=== PATIENT | male | born 1960 | race Caucasian/White ===

== ENCOUNTER 2018-02-09 14:39 | Emergency (ER) | payer OTHER ==
[~2018-02-09] VITALS: Ht 175.3 cm; Wt 82.8 kg
[2018-02-09 14:47] VITALS: BP 142/85
--- NOTE | 2018-02-09 14:56 | NUR ---
PT AMBULATED TO BED 6
--- NOTE | 2018-02-09 15:20 | NUR ---
57 YO M TO ER FOR LAC TO RIGHT FOREHEAD S/P FALL LAST NIGHT. LAC APPROX 1.5 IN. PT STATE THAT HE WAS DRINKING AND LOST HIS FOOTING FELL AND HIT HIS HEAD ON CONCREAT, STATES NO LOC . BLEEDING CONTROLLED. PERRLA. DENIES N/V/D; SKIN IS WARM WITH NOTED SILVERY PLAQUE ON BILAT ARMS; AAOX4 WITH EVEN AND STEADY GAIT; LUNGS CLEAR BL; HR EVEN AND REGULAR; PT DENIES ANY FEVER, CP, SOB, OR COUGH AT THIS TIME; PATIENT STATES PAIN OF 5/10 AT THIS TIME; VSS; PATIENT POSITIONED FOR COMFORT; HOB ELEVATED; BEDRAILS UP X2; BED DOWN. ER MD MADE AWARE OF PT STATUS. HX HTN, DEPRESSION, psoriasis, AND RA NKA
[2018-02-09] MEDS ORDERED: LIDOCAINE 1% 500 MG/50 ML VIAL INJ ONE (17:25)
--- NOTE | 2018-02-09 17:36 | NUR ---
PT RETURNED FROM X RAY
[2018-02-09] MEDS ORDERED: cefTRIAXone 1,000 MG VIAL ONE (17:42)
[2018-02-09 17:59] LABS: BASOPHILS % (AUTO) 0.5 % (0.0-2.0); EOSINOPHILS % (AUTO) 0.3 % (0.0-4.0); HEMATOCRIT 41.2 % (36-52); HEMOGLOBIN 14.2 g/dL (12.0-18.0); LYMPHOCYTES # (AUTO) 0.5 K/uL (2.0-11.5); LYMPHOCYTES % (AUTO) 12.6 % (20.5-51.1); MEAN CORPUSCULAR HEMOGLOBIN 35 pg (27-31); MEAN CORPUSCULAR HGB CONC 35 g/dL (33-37); MONOCYTES # (AUTO) 0.3 K/uL (0.8-1.0); MONOCYTES % (AUTO) 8.1 % (1.7-9.3); NEUTROPHILS # (AUTO) 3.4 K/uL (1.8-7.7); NEUTROPHILS % (AUTO) 78.5 % (42.2-75.2); PLATELET COUNT (AUTO) 125 K/uL (140-450); RED BLOOD CELL COUNT(AUTO) 4.04 MIL/uL (4.20-6.10); RED CELL DISTRIBUTION WIDTH 15.8 % (11.6-13.7); WHITE BLOOD COUNT (AUTO) 4.3 K/uL (4.8-10.8)
--- NOTE | 2018-02-09 18:05 | NUR ---
PT TO CT VIA KERMIT IN STABLE CONDITION WITH ALUMINUM SIDING INSTALLER
--- NOTE | 2018-02-09 18:06 | NUR ---
RECIEVED REPORT FROM PRASHANT RN
[2018-02-09 18:16] LABS: ALBUMIN 2.9 g/dL (3.4-5.0); ANION GAP 15.6 (8-16); CARBON DIOXIDE 22.8 mmol/L (21-32); CREATININE 0.8 mg/dL (0.7-1.3); POTASSIUM 3.4 mmol/L (3.5-5.1); TOTAL BILIRUBIN 0.8 mg/dL (0.0-1.0)
[2018-02-09 18:32] LABS: APPEARANCE,URINE CLEAR (CLEAR); BILIRUBIN,URINE NEGATIVE (NEGATIVE); BLOOD, URINE NEGATIVE (NEGATIVE); LEUKOCYTE ESTERASE ,URINE NEGATIVE (NEGATIVE); NITRITE, URINE NEGATIVE (NEGATIVE); PH,URINE 6.5 (5.0-9.0); UGLUCOSE NEGATIVE (NEGATIVE)
[2018-02-09 18:34] LABS: COLOR,URINE STRAW (YELLOW)
[2018-02-09 18:48] LABS: BARBITURATE, URINE NEG. ng/ml (NEG <=200); BENZODIAZEPINE, URINE NEG. ng/mL (NEG <=200); CANNABINOID, URINE NEG. ng/mL (NEG <=50); COCAINE, URINE NEG. ng/mL (NEG <=300); OPIATE, URINE NEG. ng/mL (NEG <=2000); PHENCYCLIDINE SCREEN,URINE NEG. ng/mL (NEG <=25)
[2018-02-09] MEDS ORDERED: MULTIVITAMIN-12 10 ML, THIAMINE 100 MG, MAGNESIUM SULFATE 50% 2,000 MG, FOLIC ACID 5 MG... IV ONE ×5 (18:55)
[2018-02-09] MEDS ORDERED: BACITRACIN OINT 500 UNITS/GM PKT TP ONE (20:12)
[2018-02-09 20:19] VITALS: BP 142/85
--- NOTE | 2018-02-09 20:19 | NUR ---
Patient discharged with v/s stable. Wound cleansed and bacitracin applied. Wound covered. Pt tolerated seuters well. Written and verbal after care instructions given and explained. Patient alert, oriented and verbalized understanding of instructions. Ambulatory with steady gait. All questions addressed prior to discharge. ID band removed. Patient advised to follow up with PMD. Rx of MOTRIN AND KEFLEX given. Patient educated on indication of medication including possible reaction and side effects. Opportunity to ask questions provided and answered.
== END 2018-02-09 20:19 | disposition home or self-care (01) ==
LOC: MED 14:39
DX: S01.81XA Laceration without foreign body of other part of head, initial encounter (principal); I10 Essential (primary) hypertension; R94.31 Abnormal electrocardiogram [ECG] [EKG]; W18.40XA Slipping, tripping and stumbling without falling, unspecified, initial encounter; Y93.89 Activity, other specified; Y92.89 Other specified places as the place of occurrence of the external cause; Y99.8 Other external cause status
CPT/HCPCS: 36415; 70450; 71045; 72125; 80053; 80305; 81003; 82550; 84484; 85025; 90471; 93005; 96365; 96367; 99285; A9153; G0482; J0696; J2001; J3411; J3475; J3490; J7030; J7060; Q0092

== ENCOUNTER 2018-02-20 11:42 | Emergency (ER) | payer OTHER ==
[~2018-02-20] VITALS: Ht 175.3 cm; Wt 81.2 kg
[2018-02-20 12:02] VITALS: BP 137/78
--- NOTE | 2018-02-20 12:05 | NUR ---
PATIENT PRESENTS ED FOR SUTURE REMOVAL TO RIGHT FOREHEAD. DENIES PAIN. VSS; PATIENT POSITIONED FOR COMFORT; HOB ELEVATED; BEDRAILS UP X2; BED DOWN. ER MD MADE AWARE OF PT STATUS.
--- NOTE | 2018-02-20 12:39 | NUR ---
REMOVED SUTURES, PATIENT TOLERATED WELL.
[2018-02-20 12:44] VITALS: BP 145/78
--- NOTE | 2018-02-20 12:45 | NUR ---
Patient discharged with v/s stable. Written and verbal after care instructions given and explained. Patient verbalized understanding. Ambulatory with steady gait. All questions addressed prior to discharge. Advised to follow up with PMD.
== END 2018-02-20 12:45 | disposition home or self-care (01) ==
LOC: MED 11:42
DX: S01.81XD Laceration without foreign body of other part of head, subsequent encounter (principal); I10 Essential (primary) hypertension; X58.XXXD Exposure to other specified factors, subsequent encounter
CPT/HCPCS: 99283